=== PATIENT | female | born 1955 | race Two or more races ===

== ENCOUNTER 2019-12-12 15:38 | Inpatient (IN) | payer OTHER ==
[~2019-12-12] VITALS: Ht 162.6 cm; Wt 90.7 kg
--- NOTE | 2019-12-12 21:00 | NUR ---
GPS CLINIC CLERK NOTES: ADMITTED 64 Y/O MALE. PT ADMITTED FROM [facility] TO GPS UNIT ON A 5150. PER HOLD PT IS FROM [facility]. PT IS ON HOLD DUE PT INGESTING SEROQUEL WITH INTENT OF COMMITTING SUICIDE. ON THE HOLD, PT CONTINUES TP ENDORSE SI AND WANTING TO . PT REPORTS AUDITORY HALLUCINATIONS TELL HER TO KILL HERSELF. PT REPORTED BEING DISAPPOINTED THAT HER SUICIDE ATTEMPT WAS NOT SUCCESSFUL AND WILL ATTEMPT AGAIN. UPON FACE TO FACE ASSESSMENT PT IS COOPERATIVE, QUIET, RESERVED, GUARDED, ANXIOUS, NEEDY AND DEPRESSED. PT STATED SHE CURRENT HAS THOUGHTS OF HURTING HERSELF BUT HAS NO SPECIFIC PLAN. PT JENN HI AT THIS TIME. PT SIGN APPROPRIATE CONSENT PAPER WORK. ENVIRONMENTAL SAFETY CHECK DONE Q15MIN. ENCOURAGE PT TO VERBALIZE CONCERN ANS FEELING TO STAFF. ORIENTED TO THE UNIT. NOTIFIED PLATFORM MAN MD FOR MED RECONCILIATION . DR CARDONA AWARE OF PT ADMISSION. BELONGING AND CONTRABAND CHECKED AND DONE. NURSING ASSESSMENT DONE. SKIN ASSESSMENT IS CHECKED WITH PERINEAL REDNESS, LEFT/RIGHT UNDER BREAST REDNESS, LEFT HAND BRUISE, LEFT ELBOW SCRATCH, RIGHT AC BRUISE, RIGHT AC RASH, AND LOWER ABDOMEN REDNESS. WOUND CONSULT ORDERED AND PICTURES TAKEN. PICTURE TAKEN OF PATIENTS FACE FOR IDENTIFICATION PUT IN PTS CHART. PTS RIGHTS DISCUSS BY TREATER. PROVIDED THE PT WITH HANDBOOK AND MEDICATION GUIDE. VITALS TAKEN WNL. INITIAL BLOOD SUGAR CHECKED. NO S/S OF RESPIRATORY DISTRESS NOTES. BREATHING EVEN AND UNLABORED. NO S/S OF SOB. CALL ART WITHIN REACH. BED LOCKED AND LOWEST POSITION. KEPT CLEAN AND DRY. PT STATED SHE IS A FORMER SMOKER BUT REFUSED NICOTINE PATCH. EXPLAIN RISKS AND BENEFITS. PT SAID SHE WILL TALK ABOUT IT IN THE MORNING. WILL ENDORSE TO DAY SHIFT TO F/U. CONTINUE TO MONITOR. Addendum: 12/13/19 at 0000 by SONG ACOSTA RN 64 Y/O FEMALE
[2019-12-12] MEDS ORDERED: BLOOD SUGAR DIAGNOSTIC 1 EACH STRIP IN ONE (21:30)
[2019-12-12] MEDS ORDERED: MAGNESIUM HYDROXIDE 30 ML UDC PO PRN (21:30)
[2019-12-12] MEDS ORDERED: MAG HYDROX/AL HYDROX/SIMETH 30 ML UDC PO PRN (21:30)
[2019-12-12] MEDS ORDERED: LISI10TA5 PO (21:34)
[2019-12-12] MEDS ORDERED: SIMV-46 PO (21:34)
[2019-12-12 22:42] VITALS: BP 138/68
[2019-12-13 06:33] LABS: CHOLESTEROL 164 mg/dL (<200); HDL CHOLESTEROL 48 mg/dL (40-60); LDL 96 mg/dL (0-99); TRIGLYCERIDES 100 mg/dL (30-150)
[2019-12-13 06:35] LABS: ALBUMIN 3.2 g/dL (3.4-5.0); BILIRUBIN,TOTAL 0.3 mg/dL (0.2-1.0); CALCIUM, SERUM 9.3 mg/dL (8.5-10.1); CREATININE 0.8 mg/dL (0.6-1.3); POTASSIUM 3.9 mmol/L (3.5-5.1); TOTAL PROTEIN, SERUM 6.4 g/dL (6.4-8.2)
[2019-12-13 08:00] VITALS: BP 154/87
[2019-12-13] MEDS: LISINOPRIL (10MG) 10 MG TABLET PO SCH (08:27)
[2019-12-13] MEDS: LORAZEPAM 0.5 MG TABLET PO PRN (11:55)
--- NOTE | 2019-12-13 11:55 | NUR ---
RN NOTE: ANXIETY PT C/O INCREASING ANXIETY. REQUESTING ATIVAN PO. ATIVAN 0.5 MG PO PRN ADMINISTERED.
[2019-12-13] MEDS: DIVALPROEX SODIUM 250 MG TABLET.DR PO SCH ×3 (12:30→16:28)
[2019-12-13] MEDS: BENZTROPINE MESYLATE (1 MG) 1 MG TABLET PO SCH ×2 (12:31→16:28)
[2019-12-13] MEDS: risperiDONE 1 MG TABLET PO SCH ×2 (12:50→16:28)
[2019-12-13 16:00] VITALS: BP 142/70
--- NOTE | 2019-12-13 16:47 | NUR ---
RN NOTE: CUTTING PT NOTED TO BE BLEEDING TO BILAT FOREARMS. PT REPORTED SELF INFLICTED CUTTING WITH HAIR COMB. 1:1 PLACED AT PATIENT'S BEDSIDE. CUTS CLEANES WITH NORMAL SALINE AND DRESSED WITH BANDAIDS.
[2019-12-13 20:48] VITALS: BP 134/90
[2019-12-13] MEDS: SIMVASTATIN 20 MG TABLET PO SCH (21:07)
[2019-12-14 08:00] VITALS: BP 126/71
--- NOTE | 2019-12-14 08:49 | NUR ---
UR NOTE: SW received a call from Omaira correctional case manager at [facility] ([phone] ex:[phone]) stating that pt has been approved 3 days 12/13/19-12/16/19 with live clinical review due on 12/17/19.
[2019-12-14] MEDS: LISINOPRIL (10MG) 10 MG TABLET PO SCH (09:00)
[2019-12-14] MEDS: risperiDONE 1 MG TABLET PO SCH ×3 (10:03→16:48)
[2019-12-14] MEDS: DIVALPROEX SODIUM 250 MG TABLET.DR PO SCH ×2 (10:04→12:46)
[2019-12-14] MEDS: BENZTROPINE MESYLATE (1 MG) 1 MG TABLET PO SCH ×2 (10:15→16:48)
--- NOTE | 2019-12-14 12:43 | NUR ---
CAREGIVER CONTACT: SW contacted pts caregiver Rueben ([phone]) for discharge planning. The phone did not ring and SW was unable to leave a voicemail.
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
--- NOTE | 2019-12-14 13:51 | NUR ---
INITIAL DISCHARGE PLAN: Pt wishes to return to live with her caregiver Reuben ([phone]) at his [address] [place] [address]. Reuben agrees with pts discharge back to his home and states if the [facility] is unable to provide transportation she will be able to pick pt up and transport home. VICKY will help from a safe and proper discharge in collaboration with .
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
--- NOTE | 2019-12-14 14:56 | NUR ---
INDIVIDUAL INTERVENTION: SW met with pt to assess for suicidality and urges to self mutilate. Pt is currently on a 1:1 due to cutting herself over the weekend. Pt reports she is currently not having suicidal ideation and states that she sometimes gets urges to self-mutilate but is unable to cut. Pt is focused on her discharge and keeps asking when she will be discharged.
[2019-12-14] MEDS: LORAZEPAM 0.5 MG TABLET PO PRN (15:10)
[2019-12-14 16:00] VITALS: BP 147/95
[2019-12-14 20:19] VITALS: BP 145/68
[2019-12-14] MEDS: SIMVASTATIN 20 MG TABLET PO SCH (21:22)
[2019-12-14] MEDS: DIVALPROEX SODIUM 500 MG TABLET.DR PO SCH (21:22)
[2019-12-14] MEDS: TEMAZEPAM 7.5 MG CAPSULE PO PRN (22:06)
--- NOTE | 2019-12-14 22:06 | NUR ---
GPS RN NOTE: INSOMNIA PT. C/O OF UNABLE TO SLEEP AND REQUESTED SLEEPING PILL. ADMINISTERED RESTORIL 7.5 MG PO PRN ORDERED. WILL CONTINUE TO MONITOR FOR SAFETY AND BEHAVIOR.
[2019-12-15 08:00] VITALS: BP 132/72
[2019-12-15] MEDS: BENZTROPINE MESYLATE (1 MG) 1 MG TABLET PO SCH ×2 (08:20→16:12)
[2019-12-15] MEDS: risperiDONE 1 MG TABLET PO SCH ×3 (08:20→16:12)
[2019-12-15] MEDS: DIVALPROEX SODIUM 250 MG TABLET.DR PO SCH ×2 (08:20→12:30)
--- NOTE | 2019-12-15 10:30 | NUR ---
AND VICKY: and VICKY met with pt to discuss her discharge date for Friday12/17/19. Pt stated that she wanted to leave on Friday instead due to her caregiver not being able to pick her up. SW informed her that this magnetic tape typewriter operator called caregiver and he mentioned that he is able to pick pt up whenever she is discharged. and VICKY also addressed pts cutting behavior and discussed appropriate coping skills.
--- NOTE | 2019-12-15 10:52 | NUR ---
WOUND CARE CONSULT: PT PRESENTS WITH RASH TO BREASTFOLDS, ABDOMINAL AND GROIN FOLDS, PRESENT ON ADMISSION. PT IS AMBULATORY AND CONTINENT. RECOMMENDATIONS MADE FOR SKIN PROTECTION AND SKIN CARE. DISCUSSED WITH NURSING STAFF. WILL SEE PRN. CURRENT ERIK SCORE IS 20. MD IN AGREEMENT WITH PLAN OF CARE. Addendum: 12/15/19 at 1054 by JENNIFER ZELAYA WNDNU Amended: Links added.
[2019-12-15] MEDS: Z GUARD REMEDY 2 OZ OINT TP SCH (12:33)
--- NOTE | 2019-12-15 14:14 | NUR ---
Caregiver Contact: SW contacted pts caregiver Reuben ([phone]) and left a voicemail stating that the pt is going to be discharged on Friday and that the SW would like to plan the discharge.
--- NOTE | 2019-12-15 14:59 | NUR ---
Caregiver Contact: VICKY contacted pts caregiver Reuben ([phone]) and informed him that the pt is being discharged on Friday. He stated that he will not be able to pick the pt up due to the financial burden that it would place on him. VICKY suggested he call [facility] about reimbursements and VICKY stated that she would try the county.
--- NOTE | 2019-12-15 15:16 | NUR ---
[facility] Contact: SW called [facility] ([phone]) and spoke to Brooks who stated that he would have the pantograph transferrer call the SW back with information on a ride based off the details that the SW presented.
[2019-12-15 16:00] VITALS: BP 144/90
[2019-12-15] MEDS: CLOTRIMAZOLE 1% 15 GM TUBE TP SCH (17:12)
[2019-12-15 20:13] VITALS: BP 141/81
[2019-12-15] MEDS: DIVALPROEX SODIUM 500 MG TABLET.DR PO SCH (21:14)
[2019-12-15] MEDS: SIMVASTATIN 20 MG TABLET PO SCH (21:14)
[2019-12-15] MEDS: TEMAZEPAM 7.5 MG CAPSULE PO PRN (21:48)
--- NOTE | 2019-12-15 21:48 | NUR ---
GPS RN NOTE: INSOMNIA PT. C/O OF UNABLE TO SLEEP AND REQUESTED SLEEPING PILL. ADMINISTERED RESTORIL 7.5 MG PO PRN ORDERED. WILL CONTINUE TO MONITOR FOR SAFETY AND BEHAVIOR
[2019-12-16 08:00] VITALS: BP 148/93
[2019-12-16] MEDS: BENZTROPINE MESYLATE (1 MG) 1 MG TABLET PO SCH ×2 (08:50→16:08)
[2019-12-16] MEDS: DIVALPROEX SODIUM 250 MG TABLET.DR PO SCH ×2 (08:50→13:10)
[2019-12-16] MEDS: risperiDONE 1 MG TABLET PO SCH ×3 (08:50→16:08)
[2019-12-16] MEDS: CLOTRIMAZOLE 1% 15 GM TUBE TP SCH ×2 (08:54→17:19)
[2019-12-16] MEDS: Z GUARD REMEDY 2 OZ OINT TP SCH (08:54)
--- NOTE | 2019-12-16 09:32 | NUR ---
GPS RN NOTE: SI/AH PATIENT CURRENTLY REPORTS FEELINGS OF SI WITH NO PLAN OR MEANS. PATIENT ALSO ADMITS TO AUDITORY HALLUCINATIONS THAT TELL HER TO SELF HARM (CUT HERSELF) AND ALSO TO HURT OTHERS (HI).
[2019-12-16] MEDS: ACETAMINOPHEN 325 MG TABLET PO PRN (10:02)
--- NOTE | 2019-12-16 11:18 | NUR ---
[facility] Contact: VICKY called the Access Line for [facility] and spoke to a clinician by the name of Dru who assisted the SW in setting up mental health follow up for the pt. Pt has an appointment at the [facility] located at [address] [place] [address]; ([phone]) on December 20, 2019 at 10am with Gianna Mays. VICKY faxed a referral packet with the pts information to the fax number: [phone].
--- NOTE | 2019-12-16 11:24 | NUR ---
[facility] Contact: VICKY called Kayley at [facility] ([phone]) and confirmed the pts transportation. Kayley stated that the pt will be picked up around 12pm the following day.
--- NOTE | 2019-12-16 11:34 | NUR ---
Caregiver Contact: SW contacted pts caregiver Reuben ([phone]) and informed him about the pts transportation that was set up and informed him about the pts appointment with the Behavioral Health clinic that was made.
[2019-12-16] MEDS: LORAZEPAM 0.5 MG TABLET PO PRN (13:49)
--- NOTE | 2019-12-16 15:37 | NUR ---
Individual Counseling: This SW met with the pt. at [facility] to facilitate counseling regarding positive coping mechanisms. The patient was receptive to meeting with SW. SW provided education regarding coping mechanisms: mindfulness, self-soothing techniques. Pt. could not respond about what coping mechanism she has used in the past. Pt. will be invited to attend future therapeutic milieu.
[2019-12-16 16:00] VITALS: BP 146/76
--- NOTE | 2019-12-16 17:23 | NUR ---
Dr. Merida gave an order to discontinue the 1:1. Pt. denies suicidal.
[2019-12-16 20:46] VITALS: BP 143/62
[2019-12-16] MEDS: DIVALPROEX SODIUM 500 MG TABLET.DR PO SCH (21:02)
[2019-12-16] MEDS: SIMVASTATIN 20 MG TABLET PO SCH (21:02)
[2019-12-16] MEDS: TEMAZEPAM 7.5 MG CAPSULE PO PRN (21:55)
--- NOTE | 2019-12-16 21:55 | NUR ---
GPS-RN NOTE: INSOMNIA PATIENT C/O INABILITY TO SLEEP. PT. REQUESTING SLEEPING PILL. ADMINISTERED RESTORIL 7.5MG PO ORDERED. WILL CONTINUE TO MONITOR.
[2019-12-17 06:57] LABS: BASOPHILS % (AUTO) 0.6 % (0.0-2.0); EOSINOPHILS % (AUTO) 0.9 % (0.0-6.0); HEMATOCRIT 41 % (33-45); HEMOGLOBIN 13.5 g/dL (11.5-14.8); LYMPHOCYTES # (AUTO) 1.6 /CMM (0.8-4.8); LYMPHOCYTES % (AUTO) 23.4 % (20.0-44.0); MEAN CORPUSCULAR HGB CONC 33 g/dl (31.0-36.0); MEAN CORPUSCULAR VOLUME 87 fL (82-100); MONOCYTES # (AUTO) 0.4 /CMM (0.1-1.30); NEUTROPHILS # (AUTO) 4.8 /CMM (1.8-8.9); NEUTROPHILS % (AUTO) 69.1 % (43.0-81.0); PLATELET COUNT (AUTO) 228 /CMM (150-450); RED BLOOD CELL COUNT(AUTO) 4.74 MIL/uL (4.0-5.2); WHITE BLOOD COUNT (AUTO) 6.9 K/uL (4.3-11.0)
[2019-12-17 07:20] LABS: ALBUMIN 3.4 g/dL (3.4-5.0); BILIRUBIN,TOTAL 0.3 mg/dL (0.2-1.0); CALCIUM, SERUM 9.6 mg/dL (8.5-10.1); CREATININE 0.8 mg/dL (0.6-1.3); POTASSIUM 3.8 mmol/L (3.5-5.1)
[2019-12-17] MEDS: DIVALPROEX SODIUM 250 MG TABLET.DR PO SCH ×2 (08:22→12:45)
[2019-12-17] MEDS: BENZTROPINE MESYLATE (1 MG) 1 MG TABLET PO SCH ×2 (08:22→16:28)
[2019-12-17] MEDS: risperiDONE 1 MG TABLET PO SCH ×3 (08:23→16:28)
[2019-12-17 08:27] VITALS: BP 156/87
[2019-12-17] MEDS: AMLODIPINE BESYLATE 5 MG TABLET PO SCH (08:31)
[2019-12-17] MEDS: CLOTRIMAZOLE 1% 15 GM TUBE TP SCH ×2 (08:31→16:28)
[2019-12-17] MEDS: Z GUARD REMEDY 2 OZ OINT TP PRN ×2 (08:31→08:32)
[2019-12-17] MEDS: Z GUARD REMEDY 2 OZ OINT TP SCH (08:40)
--- NOTE | 2019-12-17 09:00 | NUR ---
RN NOTE- PT OOB IN HALLWAY VISIBLE ON UNIT. CURERENTLY STATES SHE FEELS UNSAFE. DR CARDONA TO SEE PT. MED COMPLIANT INTERACTIVE TEARFUL AT TIMES
--- NOTE | 2019-12-17 10:08 | NUR ---
[facility] Contact: VICKY called Kayley at [facility] ([phone]) and cancelled the discharge for today.
--- NOTE | 2019-12-17 10:10 | NUR ---
RN NOTE- DR CARDONA SPOKE W PT AND PT FEELS UNSAFE AND THINKS SHE WILL HURT HERSELF. PT CANNOT CONTRACT FOR SAFETY. 1:1 ORDERED AT THIS TIME. NOTED AND CARRIED OUT.
--- NOTE | 2019-12-17 10:23 | NUR ---
[facility] Contact: SW called the [facility] ([phone]) for [facility] and informed them that the pt is not being discharged today and therefore the appointment that was made for her needs to be cancelled and that the SW will call back to make a new appointment when the time comes.
--- NOTE | 2019-12-17 10:27 | NUR ---
Caregiver Contact: SW contacted pts caregiver Reuben ([phone]) and informed him that the pt is not being discharged today due to the pt not being stable. SW stated that she will call him when she has more information about when the pt will be discharged. SW also stated that she will reschedule the appointments that were made.
--- NOTE | 2019-12-17 10:34 | NUR ---
UR Note: VICKY called Omaira showcase maker at [facility] ([phone] [phone]) and conducted a clinical on her voicemail requesting additional authorization.
--- NOTE | 2019-12-17 15:13 | NUR ---
Individual Counseling: This SW met with the pt. in activities room to facilitate 1on1 counseling. Patient was receptive to meeting with SW. Patient stated she is still experiencing auditory hallucinations that tell her to kill herself. Patient discussed Psych Hx and wanting to find medication that works for her. SW provided verbal praise for being compliant with medication and discussing this with her psychiatrist. SW inquired about patient's support system. Patient stated she has a caregiver and a sister in the [facility] who is not involved. SW used empathetic listening and processed feelings with pt. Pt. will be invited to attend future therapeutic milieu.
[2019-12-17 15:57] VITALS: BP 138/73
--- NOTE | 2019-12-17 19:23 | NUR ---
GPS/RN OPENING NOTES RECEIVED PATIENT IN BED, AWAKE, ABLE TO RESPOND AND VERBALIZED NEEDS, OBSERVE CALM AND COOPERATIVE. SKIN WARM TO TOUCH. RECEIVED ENDORSEMENT FROM AM RN FOR BRET. TO MONITOR FOR ANY CHANGES AND MONITORING FOR SELF HARM.
[2019-12-17 20:00] VITALS: BP 132/68
[2019-12-17] MEDS: DIVALPROEX SODIUM 500 MG TABLET.DR PO SCH (20:05)
--- NOTE | 2019-12-17 20:08 | NUR ---
GPS/RN NOTES PATIENT REQUESTING FOR SNACK, ABLE TO GET CALL FROM FAMILY AND TALKING ON THE PHONE RIGHT NOW.
[2019-12-17 20:18] VITALS: BP 132/68
--- NOTE | 2019-12-17 21:22 | NUR ---
GPS/RN NOTES PATIENT REQUESTED FOR SLEEP MEDICATION. UNABLE TO SLEEP WELL.
[2019-12-17] MEDS: SIMVASTATIN 20 MG TABLET PO SCH (21:26)
[2019-12-17] MEDS: TEMAZEPAM 7.5 MG CAPSULE PO PRN (21:27)
--- NOTE | 2019-12-18 04:07 | NUR ---
GPS/RN NOTES PATIENT AWAKEN FROM SLEEP, WALK TO THE BATHROOM AND TALKING TO ROOM MATE.
[2019-12-18 08:00] VITALS: BP 158/83
[2019-12-18] MEDS: BENZTROPINE MESYLATE (1 MG) 1 MG TABLET PO SCH ×2 (08:15→16:09)
[2019-12-18] MEDS: DIVALPROEX SODIUM 250 MG TABLET.DR PO SCH ×2 (08:15→12:23)
[2019-12-18] MEDS: risperiDONE 1 MG TABLET PO SCH ×3 (08:16→16:10)
[2019-12-18] MEDS: AMLODIPINE BESYLATE 5 MG TABLET PO SCH (08:16)
[2019-12-18] MEDS: Z GUARD REMEDY 2 OZ OINT TP PRN ×3 (09:08→09:10)
[2019-12-18] MEDS: CLOTRIMAZOLE 1% 15 GM TUBE TP SCH ×2 (09:08→17:12)
[2019-12-18] MEDS: Z GUARD REMEDY 2 OZ OINT TP SCH (09:10)
[2019-12-18] MEDS: LORAZEPAM 0.5 MG TABLET PO PRN (10:15)
--- NOTE | 2019-12-18 10:15 | NUR ---
RN NOTE: ANXIETY PT C/O INCREASING ANXIETY AND AGITATION. REQUESTING ATIVAN. ATIVAN 0.5 MG PO PRN ADMINISTERED.
[2019-12-18] MEDS: ACETAMINOPHEN 325 MG TABLET PO PRN ×2 (11:41→19:23)
--- NOTE | 2019-12-18 11:41 | NUR ---
RN NOTE: PAIN PT C/O 09/27 LEFT UPPER LEG PAIN. MEDICATED WITH TYLENOL 650 MG PO PRN
[2019-12-18 16:00] VITALS: BP 128/70
[2019-12-18 20:00] VITALS: BP 130/72
[2019-12-18] MEDS: DIVALPROEX SODIUM 500 MG TABLET.DR PO SCH (20:26)
[2019-12-18] MEDS: SIMVASTATIN 20 MG TABLET PO SCH (21:13)
[2019-12-18] MEDS: TEMAZEPAM 7.5 MG CAPSULE PO PRN (21:13)
[2019-12-19 08:00] VITALS: BP 134/61
[2019-12-19] MEDS: risperiDONE 1 MG TABLET PO SCH ×3 (08:06→16:16)
[2019-12-19] MEDS: DIVALPROEX SODIUM 250 MG TABLET.DR PO SCH ×2 (08:06→12:33)
[2019-12-19] MEDS: BENZTROPINE MESYLATE (1 MG) 1 MG TABLET PO SCH ×2 (08:06→16:16)
[2019-12-19] MEDS: AMLODIPINE BESYLATE 5 MG TABLET PO SCH (08:07)
[2019-12-19] MEDS: CLOTRIMAZOLE 1% 15 GM TUBE TP SCH ×2 (08:44→16:18)
[2019-12-19] MEDS: Z GUARD REMEDY 2 OZ OINT TP SCH (08:45)
[2019-12-19] MEDS: LORAZEPAM 0.5 MG TABLET PO PRN (09:58)
[2019-12-19 15:42] VITALS: BP 147/71
[2019-12-19 19:48] VITALS: BP 116/69
[2019-12-19] MEDS: DIVALPROEX SODIUM 500 MG TABLET.DR PO SCH (21:18)
[2019-12-19] MEDS: SIMVASTATIN 20 MG TABLET PO SCH (21:18)
[2019-12-19] MEDS: TEMAZEPAM 7.5 MG CAPSULE PO PRN (22:17)
--- NOTE | 2019-12-19 22:17 | NUR ---
GPS RN NOTE: INSOMNIA PT. C/O UNABLE TO SLEEP AND REQUESTED SLEEPING PILL. ADMINISTERED RESTORIL 7.5 MG PO PRN ORDERED. WILL CONTINUE TO MONITOR FOR SAFETY AND BEHAVIOR
--- NOTE | 2019-12-20 07:50 | NUR ---
GPS RN NOTE: RIGHT HAND PATIENT HAS RIGHT HAND SWELLING AND REDNESS THAT SHE STATES HUNT AND IS ITCHY. WOUND CONSULT ORDERED. WILL CONTINUE TO MONITOR
[2019-12-20 08:00] VITALS: BP 129/75
--- NOTE | 2019-12-20 08:05 | NUR ---
UR Note: Omaira casework manager at [facility] ([phone] [phone]) called the SW and stated that the pt was authorized from 12/17-12/19 with review due on 12/20/19.
[2019-12-20] MEDS: BENZTROPINE MESYLATE (1 MG) 1 MG TABLET PO SCH ×2 (08:47→16:13)
[2019-12-20] MEDS: risperiDONE 1 MG TABLET PO SCH ×3 (08:47→16:12)
[2019-12-20] MEDS: DIVALPROEX SODIUM 250 MG TABLET.DR PO SCH ×2 (08:47→12:45)
[2019-12-20] MEDS: CLOTRIMAZOLE 1% 15 GM TUBE TP SCH ×2 (08:48→16:13)
[2019-12-20] MEDS: Z GUARD REMEDY 2 OZ OINT TP PRN (08:48)
[2019-12-20] MEDS: Z GUARD REMEDY 2 OZ OINT TP SCH (08:48)
[2019-12-20] MEDS: AMLODIPINE BESYLATE 5 MG TABLET PO SCH (08:49)
--- NOTE | 2019-12-20 10:10 | NUR ---
UR Note: VICKY called Oamira case folder at [facility] ([phone] [phone]) and conducted a clinical on her voicemail requesting additional authorization.
[2019-12-20] MEDS: HYDROCORTISONE 1% CREAM 28.35 GM TUBE TP SCH ×2 (10:19→16:14)
--- NOTE | 2019-12-20 11:55 | NUR ---
UR Note: VICKY called Omaira spring encaser at [facility] ([phone] [phone]) and provided more information on the pts condition that were discussed earlier today.
--- NOTE | 2019-12-20 11:58 | NUR ---
Caregiver Contact: VICKY contacted pts caregiver Reuben ([phone]) and informed him that the pt is not being discharged today and that we are aiming for Friday.
[2019-12-20] MEDS: LORAZEPAM 0.5 MG TABLET PO PRN (13:44)
--- NOTE | 2019-12-20 13:44 | NUR ---
GPS RN NOTE: ANXIETY PATIENT CAME UP TO RN ASKING IF RN HAD MEDICATION FOR BEING "UPTIGHT". WITH FURTHER QUESTIONING PATIENT RESPONDED WITH FEELING TENSE AND ANXIOUS AND ATIVAN 0.5 MG PO WAS GIVEN ORDERED. WILL CONTINUE TO MONITOR
[2019-12-20 16:00] VITALS: BP 149/61
[2019-12-20 19:30] VITALS: BP 147/70
--- NOTE | 2019-12-20 19:30 | NUR ---
GPS/RN PM OPENING NOTE REPORT RECIEVED FROM GIOVANNY ESPOSITO. PATIENT IN BED, AWAKE, AXO X3, PT CALM AND COOPERATIVE, A BIT RESTLESS/ANXIOUS. PT AMBULATES WITH WALKER WITH STEADY GAIT. PATIENT STATES SHE STILL HAS SOME SUICIDAL FEELINGS. NO SPECIFIC PLAN TO HARM SELF. REINFORCED SAFE ENVIRONMENT OF UNIT. REVIEWED POC. PATIENT ON 5250 THAT EXPIRES 12/28/19. WILL CONT TO MONITOR PER GPS PROTOCOL.
[2019-12-20] MEDS: SIMVASTATIN 20 MG TABLET PO SCH (22:01)
[2019-12-20] MEDS: DIVALPROEX SODIUM 500 MG TABLET.DR PO SCH (22:06)
[2019-12-20] MEDS: TEMAZEPAM 7.5 MG CAPSULE PO PRN (22:10)
--- NOTE | 2019-12-21 06:14 | NUR ---
WOUND CARE CONSULT WOUND CARE RECEIVED CONSULT FOR RIGHT HAND REDNESS AND SWELLING. WOUND CARE WILL DEFER CONSULT AND EVALUATION/ASSESSMENT TO PRIMARY BACKHOE OPERATOR Rommel FANG. PATIENT WITH ERIK AT 21, WILL SEE PRN.
[2019-12-21 08:00] VITALS: BP 152/65
[2019-12-21] MEDS: DIVALPROEX SODIUM 250 MG TABLET.DR PO SCH ×2 (08:11→12:08)
[2019-12-21] MEDS: risperiDONE 1 MG TABLET PO SCH ×3 (08:12→16:18)
[2019-12-21] MEDS: BENZTROPINE MESYLATE (1 MG) 1 MG TABLET PO SCH ×2 (08:13→16:18)
[2019-12-21] MEDS: AMLODIPINE BESYLATE 5 MG TABLET PO SCH (08:13)
[2019-12-21] MEDS: HYDROCORTISONE 1% CREAM 28.35 GM TUBE TP SCH ×2 (08:17→16:19)
[2019-12-21] MEDS: CLOTRIMAZOLE 1% 15 GM TUBE TP SCH ×2 (09:17→16:20)
[2019-12-21] MEDS: Z GUARD REMEDY 2 OZ OINT TP PRN ×3 (09:17→09:19)
[2019-12-21] MEDS: Z GUARD REMEDY 2 OZ OINT TP SCH (09:20)
--- NOTE | 2019-12-21 09:32 | NUR ---
UR NOTE: VICKY received a voicemail from Omaira case repairer at [facility] ([phone] [phone]) stating pt has been approved one additional day (12/21/19) with follow up needed to discuss an active treatment plan for pt if not discharged on Friday12/22/19. Per Omaira she is requesting med changes, psychotherapy addressing pts self harm, baseline, any medical issues, discharge plan, and if pt has a guardian, and if she will need a partial program upon discharge. VICKY will discuss with MD and call back for follow up.
--- NOTE | 2019-12-21 13:05 | NUR ---
Caregiver Contact: VICKY contacted pts caregiver Reuben ([phone]) to inform him pt will be discharged tomorrow 12/22/19. He states that he will be picking pt up at 11:00am.
--- NOTE | 2019-12-21 13:11 | NUR ---
[facility]: VICKY called the [facility] ([phone]) for [facility] and informed them that pt will be discharged tomorrow 12/22/19 and will need a follow up appointment for behavioral health. Per Inés, a clinician will be returning call to provide her with appointment date and time.
--- NOTE | 2019-12-21 13:13 | NUR ---
[facility]: VICKY called Soco at [facility] ([phone]) to arrange transportation, Soco requested VICKY fax over a request and facesheet for transportation and will call VICKY back with transportation time. Addendum: 12/21/19 at 1321 by BEL PERRY VICKY faxed information to fax: [phone].
--- NOTE | 2019-12-21 13:19 | NUR ---
CAREGIVER CONTACT: VICKY contacted pts caregiver Reuben ([phone]) to inform him pts transportation was being arranged by the [facility].
--- NOTE | 2019-12-21 13:20 | NUR ---
UR Note: VICKY called Omaira showcase maker at [facility] ([phone] [phone]) and left a voicemail requesting referral for a partial program.
--- NOTE | 2019-12-21 14:11 | NUR ---
INDIVIDUAL MEETING: SW met with pt at bedside to discuss her discharge for tomorrow. Pt clapped her hands with excitement and stated she could not wait to go home. SW informed her that transportation was being arranged with the [facility] and also that a follow up appointment for mental health services will be scheduled. Pt agreed.
[2019-12-21 16:00] VITALS: BP 149/75
[2019-12-21] MEDS: LORAZEPAM 0.5 MG TABLET PO PRN (16:18)
--- NOTE | 2019-12-21 16:19 | NUR ---
RN NOTE: ANXIETY PT C/O INCREASING ANXIETY. UNABLE TO CALM SELF INDEPENDENTLY. REQUESTING ATIVAN. ATIVAN 0.5 MG PO PRN ADMINISTERED.
[2019-12-21 20:00] VITALS: BP 135/78
[2019-12-21 20:13] VITALS: BP 135/78
[2019-12-21] MEDS: DIVALPROEX SODIUM 500 MG TABLET.DR PO SCH (21:38)
[2019-12-21] MEDS: SIMVASTATIN 20 MG TABLET PO SCH (21:47)
[2019-12-21] MEDS: TEMAZEPAM 7.5 MG CAPSULE PO PRN (22:38)
--- NOTE | 2019-12-21 22:38 | NUR ---
INSOMNIA: PRN RESTORIL GIVEN PATIENT VERBALIZED THAT SHE IS UNABLE TO SLEP & WANTED TO TAKE SLEEPING MEDICINE. PRN RESTORIL 7.5 MG 1 CAP PO GIVEN ORDERED. WILL CONTINUE TO MONITOR FOR EFFECTIVENESS.
[2019-12-22 07:07] LABS: BASOPHILS % (AUTO) 0.5 % (0.0-2.0); EOSINOPHILS % (AUTO) 0.9 % (0.0-6.0); HEMATOCRIT 40 % (33-45); HEMOGLOBIN 13.3 g/dL (11.5-14.8); LYMPHOCYTES # (AUTO) 1.6 /CMM (0.8-4.8); LYMPHOCYTES % (AUTO) 20.2 % (20.0-44.0); MEAN CORPUSCULAR HGB CONC 33 g/dl (31.0-36.0); MEAN CORPUSCULAR VOLUME 86 fL (82-100); MONOCYTES # (AUTO) 0.5 /CMM (0.1-1.30); MONOCYTES % (AUTO) 6.3 % (2.0-12.0); NEUTROPHILS # (AUTO) 5.8 /CMM (1.8-8.9); NEUTROPHILS % (AUTO) 72.1 % (43.0-81.0); PLATELET COUNT (AUTO) 211 /CMM (150-450); RED BLOOD CELL COUNT(AUTO) 4.68 MIL/uL (4.0-5.2); WHITE BLOOD COUNT (AUTO) 8.1 K/uL (4.3-11.0)
[2019-12-22 07:25] LABS: ALBUMIN 3.5 g/dL (3.4-5.0); BILIRUBIN,TOTAL 0.4 mg/dL (0.2-1.0); CALCIUM, SERUM 9.8 mg/dL (8.5-10.1); CREATININE 0.9 mg/dL (0.6-1.3); POTASSIUM 3.8 mmol/L (3.5-5.1)
[2019-12-22 08:00] VITALS: BP 129/61
--- NOTE | 2019-12-22 08:07 | NUR ---
[facility] TRANSPORTATION: VICKY called Soco at [facility] ([phone]) who stated pt will be picked up at 1400 on this present day.
--- NOTE | 2019-12-22 08:29 | NUR ---
BEHAVIORAL HEALTH APPOINTMENT: VICKY contacted [facility] located at [address] [place] [address]; ([phone]) and spoke with Inés who stated she will have clinician call VICKY for an appointment time and date.
[2019-12-22 08:36] VITALS: BP 129/61
[2019-12-22] MEDS: risperiDONE 1 MG TABLET PO SCH ×2 (08:36→12:19)
[2019-12-22] MEDS: BENZTROPINE MESYLATE (1 MG) 1 MG TABLET PO SCH (08:36)
[2019-12-22] MEDS: DIVALPROEX SODIUM 250 MG TABLET.DR PO SCH ×2 (08:36→12:19)
[2019-12-22] MEDS: AMLODIPINE BESYLATE 5 MG TABLET PO SCH (08:36)
[2019-12-22] MEDS: HYDROCORTISONE 1% CREAM 28.35 GM TUBE TP SCH (08:40)
[2019-12-22] MEDS: Z GUARD REMEDY 2 OZ OINT TP SCH (08:42)
[2019-12-22] MEDS: CLOTRIMAZOLE 1% 15 GM TUBE TP SCH (08:42)
--- NOTE | 2019-12-22 11:56 | NUR ---
DISCHARGE NOTE: Pt was discharged via county transport at 1330 home to [address], [place] [address]. Pts caregiver Reuben ([phone]) has been notified and agrees with discharge plan. Pts mood is euthymic with congruent affect. Pt denied visual/auditory hallucinations and denied suicidal/homicidal ideation. Pt has a follow up appointment at [facility] Address: [address] [place] [address]; ([phone]) on Tuesday, December 24, 2019. VICKY faxed clinicals to . Pt was given a referral to Provisioning Specialist: Dr. Kimberli Cortez [address] [place], [place] [id number] . The multidisciplinary exitcare form was done, printed, signed, and given to the patient. Addendum: 12/22/19 at [facility] by BEL PERRY Pt will address her substance use with [facility] Address: [address] [place] [id number]; ([phone]).
--- NOTE | 2019-12-22 13:30 | NUR ---
INFORMATION RESOURCE CONSULTANT NOTE: 64 YEAR OLD FEMALE DISCHARGED TO HOME IN STABLE CONDITION. COMPLIANT WITH MEDICATIONS, COOPERATIVE WITH TREATMENT PLANS. PATIENT DENIES SI/HI AND INSTRUCTED TO GO TO THE CLOSEST ER IF DEVELOPING SI/HI. BEHAVIOR IMPROVED, PSYCHIATRIC TREATMENT PLANS MET, MEDICAL TREATMENT PLANS DEFERRED FOR CONTINUAL MONITORING. EDUCATED PT ABOUT AFTER CARE PLAN AND COPY PROVIDED. RETURNED PERSONAL BELONGINGS TO PATIENT. MEDICATIONS RECONCILED WITH DR. HERNNADEZ AND DR. CARDONA. PT SIGNED DISCHARGE PAPERWORK. WOUND PICTURES TAKEN AND DOCUMENTED IN CHART. ID BANDS REMOVED. PATIENT LEFT THE UNIT VIA WHEELCHAIR AT 13:30. PT TO BE TRANSPORTED HOME VIA COUNTY TRANSPORT
--- NOTE | 2019-12-23 14:23 | NUR ---
UR Note: VICKY called Omaira counter caser at [facility] ([phone] [phone]) and left a discharge clinical on her voicemail.
== END 2019-12-22 13:30 | disposition home or self-care (01) | DRG 885 ==
LOC: GPS 20:51
PROVIDERS: ADMIT Psychiatry & Neurology Psychosomatic Medicine; ATTEND Student in an Organized Health Care Education/Training Program
DX: F25.0 Schizoaffective disorder, bipolar type (principal); R45.851 Suicidal ideations; E78.5 Hyperlipidemia, unspecified; E66.9 Obesity, unspecified; I10 Essential (primary) hypertension; Z68.34 Body mass index [BMI] 34.0-34.9, adult; G47.30 Sleep apnea, unspecified; Z87.891 Personal history of nicotine dependence; Z91.5 Personal history of self-harm; F29 Unspecified psychosis not due to a substance or known physiological condition; F19.90 Other psychoactive substance use, unspecified, uncomplicated; E02 Subclinical iodine-deficiency hypothyroidism; L40.9 Psoriasis, unspecified
CPT/HCPCS: 36415; 73090-TC; 80053-TC; 80061-TC; 80164-TC; 82962-TC; 84439-TC; 84443-TC; 85025-TC; 87081-TC; 97116-TC; 97530-TC